=== PATIENT | female | born 1950 | race Caucasian/White ===

== ENCOUNTER 2018-09-27 09:33 | Outpatient (CLI) | payer MEDICARE ==
--- NOTE | 2018-09-27 11:36 | MRI ---
MRI LUMBAR SPINE NONCONTRAST: HISTORY: Lumbar spinal stenosis. Neurogenic claudication COMPARISON: 04/26/2006 FINDINGS: Redemonstration of marked levoscoliosis of the lumbar spine with the apex at the L1-L2 level. Overall , appropriate T1 marrow signal intensity of the lumbar vertebra. Vertebral body height is maintained. No acute fracture. No significant STIR hyperintensity to suggest edema. No ligamentous in jury. Appropriate signal intensity visualized paraspinal muscles and visualized solid organs. Conus medullaris terminates at the T12 level. T12-L1:Desiccation without significant loss of disc space height. No significant central canal stenos is. Limited evaluation of the neural foramina. There does appear to be at least moderate bilateral neural foraminal narrowing. L1-L2:Desiccation with severe loss of disc space height. Broad-based disc bulge, ligament flavum thic kening and facet hypertrophy result in moderate central canal stenosis. There is significant narrowing of the right subarticular zone with mass effect upon the traversing right L2 and L3 nerve r oots. Severe right foraminal narrowing. Left neural foramen appears to be mildly narrowed. L2-L3:Desiccation with severe loss of disc space height. Broad-based disc osteophyte complex, ligamen maddie flavum thickening and facet hypertrophy have moderate to severe central canal stenosis. Severe right foraminal narrowing. Moderate left foraminal narrowing. L3-L4:Desiccation with mild loss of disc space height. Broad-based disc bulge, ligamentum flavum thic kening and facet hypertrophy result in moderate to severe central canal stenosis. Moderate right and left foraminal narrowing. L4-L5:Desiccation with mild loss of disc space height. Broad-based disc bulge, ligamentum flavum thic kening and facet hypertrophy result in moderate central canal stenosis. Right neural foramen is patent. The left neural foramen is difficult to discern given increased soft tissue signal intensity. Findings may represent edematous changes of the foraminal left L4 nerve root. However, nerve sheath lesion cannot be excluded. Postcontrast imaging is recommended. L5-S1:Adequate disc hydration. No significant central canal stenosis. Mild right and left foraminal n arrowing. IMPRESSION: 1. Multilevel degenerative changes lumbar spine as described above. There is significant central jae l stenosis at multiple levels. Moderate central canal stenosis at L1-L2. Moderate to severe central canal stenosis at L2-L3 and L3-L4. 2. Increased soft tissue signal intensity in the left neural foramen at L4-L5 as described above. Pos tcontrast imaging is recommended. CODE T Transcribed Date/Time: 09/27/2018 12:10 PM
--- NOTE | 2018-09-27 12:38 | RAD ---
LUMBAR SPINE 4 VIEWS: Date: 09/27/18 HISTORY: Spinal stenosis. Lumbar pain. FINDINGS: There is a severe scoliotic curvature of the lumbar spine with convexity to the left. Secondary degen erative changes are noted. There is lateral wedging of the L2, L3, and L4 vertebra on the right due t o the scoliotic curvature. Loss of disc space with hypertrophic changes are prominent at these levels . Prominent facet hypertrophy. Alignment appears maintained on the lateral view. There is anterior we dging also seen involving the L2 and L3 vertebra in the lateral projection. IMPRESSION: Severe scoliosis lumbar spine with convexity to the left with secondary degenerative changes as descr ibed. POS: [facility]
== END 2018-09-27 09:34 | disposition home or self-care (01) ==
LOC: BICMRI 09:33
PROVIDERS: ATTEND Anesthesiology Pain Medicine
DX: M48.062 Spinal stenosis, lumbar region with neurogenic claudication (principal); M47.816 Spondylosis without myelopathy or radiculopathy, lumbar region; M41.9 Scoliosis, unspecified
CPT/HCPCS: 72110; 72148

== ENCOUNTER 2021-05-06 12:32 | Outpatient (CLI) | payer MEDICARE | END 2021-05-06 12:33 | disposition home or self-care (01) | LOC: BICRAD 12:32 | PROVIDERS: ATTEND Surgery | DX: M48.062 Spinal stenosis, lumbar region with neurogenic claudication (principal); M47.816 Spondylosis without myelopathy or radiculopathy, lumbar region; M41.85 Other forms of scoliosis, thoracolumbar region | CPT/HCPCS: 72110 ==